=== PATIENT | female | born 1995 | race Caucasian/White ===

== ENCOUNTER 2019-05-08 09:43 | Emergency (ER) | payer MEDICAID ==
[~2019-05-08] VITALS: Ht 167.6 cm; Wt 92.1 kg
[2019-05-08 09:58] VITALS: BP_SYST 119
--- NOTE | 2019-05-08 10:01 | NUR ---
PT TO WR
--- NOTE | 2019-05-08 10:03 | NUR ---
Patient to ER bed 6 to gown for evaluation. Side rails up. Assumed care.
--- NOTE | 2019-05-08 10:05 | NUR ---
PT PRESENTS TO ED C/O R GREAT TOE PAIN S/P TRIPPING ON CONCRETE.
--- NOTE | 2019-05-08 10:13 | NUR ---
Patient transported to radiology via WC, accompanied by RAD STAFF.
--- NOTE | 2019-05-08 10:14 | NUR ---
Returned from radiology, back to [facility].
[2019-05-08] MEDS ORDERED: KETOROLAC TROMETHAMINE 60 MG/2 ML VIAL IM ONE (11:00)
[2019-05-08 12:16] VITALS: BP_SYST 124
--- NOTE | 2019-05-08 12:16 | NUR ---
Patient given written and verbal discharge instructions and verbalizes understanding. ER MD Dr. Renteria discussed with patient the results and treatment provided. Patient in stable condition. ID arm band removed. Rx of Naprosyn given. Patient educated on pain management and to follow up with PMD. Pain Scale 5/10. Opportunity for questions provided and answered. Medication side effect fact sheet provided.
== END 2019-05-08 12:16 | disposition home or self-care (01) ==
LOC: SED 09:43
DX: S92.421A Displaced fracture of distal phalanx of right great toe, initial encounter for closed fracture (principal); W17.89XA Other fall from one level to another, initial encounter; Y93.89 Activity, other specified; Y92.89 Other specified places as the place of occurrence of the external cause; Y99.8 Other external cause status
CPT/HCPCS: 73630; 81025; 96372; 99283; J1885

== ENCOUNTER 2020-06-17 09:32 | Emergency (ER) | payer MEDICAID ==
[~2020-06-17] VITALS: Ht 167.6 cm; Wt 94.8 kg
[2020-06-17 09:43] VITALS: BP_SYST 139
[2020-06-17] MEDS ORDERED: KETOROLAC TROMETHAMINE 60 MG/2 ML VIAL IM ONE (09:45)
[2020-06-17] MEDS ORDERED: ONDANSETRON 4 MG ODT TAB PO ONE (09:45)
[2020-06-17 10:15] LABS: CALCIUM 9.4 mg/dL (8.4-11.0); CREATININE 0.8 mg/dL (0.55-1.30); POTASSIUM 3.7 mmol/L (3.5-5.1)
[2020-06-17 10:18] LABS: BASOPHILS # (AUTO) 0.1 K/uL (0.0-0.2); BASOPHILS % (AUTO) 0.8 % (0.0-2.0); EOSINOPHILS # (AUTO) 0.1 K/uL (0.0-0.4); EOSINOPHILS % (AUTO) 0.4 % (0.0-4.0); HEMATOCRIT 39.5 % (36-48); HEMOGLOBIN 13.2 g/dL (12.0-16.0); LYMPHOCYTES # (AUTO) 0.3 K/uL (1.0-5.5); LYMPHOCYTES % (AUTO) 2.7 % (20.5-51.5); MEAN CORPUSCULAR HEMOGLOBIN 29 pg (27-31); MEAN CORPUSCULAR HGB CONC 33 % (32-36); MEAN CORPUSCULAR VOLUME 87 fL (79.0-98.0); MONOCYTES # (AUTO) 0.3 K/uL (0.0-1.0); MONOCYTES % (AUTO) 2.6 % (1.7-9.3); NEUTROPHILS # (AUTO) 10.9 K/uL (1.8-7.7); NEUTROPHILS % (AUTO) 93.5 % (40.0-70.0); PLATELET COUNT (AUTO) 271 K/uL (130-430); RED BLOOD CELL COUNT(AUTO) 4.53 MIL/uL (4.2-6.2); RED CELL DISTRIBUTION WIDTH 13.5 % (9.0-15.0); WHITE BLOOD COUNT (AUTO) 11.7 K/uL (4.8-10.8)
[2020-06-17 10:21] LABS: ALBUMIN 4.1 g/dL (3.4-4.8); TOTAL BILIRUBIN 1.6 mg/dL (0.0-1.0)
[2020-06-17] MEDS ORDERED: OMEP20TA20 PO (10:59)
[2020-06-17] MEDS ORDERED: MAG HYDROX/AL HYDROX/SIMETH 30 ML, DICYCLOMINE HCL 20 MG, LIDOCAINE VISCOUS 2% 15ML (PO... PO ONE ×3 (11:00)
[2020-06-17 11:19] LABS: BILIRUBIN,URINE NEGATIVE (NEGATIVE); BLOOD, URINE 2+ (NEGATIVE); COLOR,URINE YELLOW (YELLOW); GLUCOSE,URINE NEGATIVE (NEGATIVE); KETONES,URINE NEGATIVE (NEGATIVE); LEUKOCYTE ESTERASE ,URINE NEGATIVE (NEGATIVE); NITRITE, URINE NEGATIVE (NEGATIVE); PH,URINE 8.5 (5.0-8.0); PROTEIN URINE NEGATIVE (NEGATIVE); UROBILINOGEN,URINE 0.2 (0.2-1.0)
[2020-06-17 11:28] LABS: CLARITY/URINE SLIGHTLY HAZY (CLEAR)
[2020-06-17 11:32] LABS: BACTERIA,URINE RARE /HPF (None Seen); RBC,URINE 0-3 /HPF (0-3); WBC,URINE NONE SEEN /HPF (0-3)
[2020-06-17] MEDS ORDERED: HYDROcodone/ACETAMIN 5-325 MG TAB (NORCO/ VICODIN) PO ONE (12:15)
[2020-06-17 12:34] VITALS: BP_SYST 142
[2020-06-17] MEDS ORDERED: ONDA-8 TL (20:21)
[2020-06-17] MEDS ORDERED: PHEN16.236 PO (20:21)
== END 2020-06-17 12:34 | disposition home or self-care (01) ==
LOC: SED 09:32
DX: K29.70 Gastritis, unspecified, without bleeding (principal)
CPT/HCPCS: 36415; 74176; 76376; 76700; 80053; 81000; 81025; 82150; 83605; 83690; 84484; 84703; 85025; 96372; 99285; J1885; J2001; Q0162

== ENCOUNTER 2020-06-17 19:42 | Emergency (ER) | payer MEDICAID ==
[~2020-06-17] VITALS: Ht 167.6 cm; Wt 94.8 kg
[~2020-06-17 19:42] MED LIST: OMEP20TA20 PO
[2020-06-17 19:48] VITALS: BP_SYST 133
[2020-06-17] MEDS ORDERED: PHEN16.236 PO (20:21)
[2020-06-17] MEDS ORDERED: ONDA-8 TL (20:21)
[2020-06-17] MEDS ORDERED: KETOROLAC TROMETHAMINE 60 MG/2 ML VIAL IM ONE (20:30)
[2020-06-17] MEDS ORDERED: ONDANSETRON 4 MG ODT TAB ONE (20:38)
[2020-06-17] MEDS ORDERED: ONDANSETRON 4 MG ODT TAB PO ONE (20:45)
[2020-06-17 21:21] VITALS: BP_SYST 124
== END 2020-06-17 21:21 | disposition home or self-care (01) ==
LOC: SED 19:42
DX: K29.70 Gastritis, unspecified, without bleeding (principal)
CPT/HCPCS: 96372; 99283; J1885; Q0162